=== PATIENT | male | born 1970 | race Two or more races ===

== ENCOUNTER 2024-09-03 09:31 | Inpatient (IN) | payer OTHER ==
[~2024-09-03] VITALS: Ht 182.9 cm; Wt 129.2 kg
[2024-09-03] MEDS: LIDOCAINE VISCOUS 2% 15ML UD MT ONE (10:07)
[2024-09-03] MEDS: GLUCAGON EMERG KIT 1mg/1ml IM ONE (10:07)
[2024-09-03 10:29] LABS: Basophils # (auto) 0.1 10 ^3/uL (0-0.2); Basophils % (auto) 0.8 % (0.0-2.0); Eosinophils # (auto) 0.3 10 ^3/uL (0-0.8); Eosinophils % (auto) 2.6 % (0.0-7.0); Hematocrit 51.4 % (41.0-53.0); Hemoglobin 17.4 g/dL (13.5-17.5); Lymphocytes # (auto) 2.6 10 ^3/uL (0.4-5.4); Mean Corpuscular Hgb Conc. 33.8 g/dL (32.0-36.0); Mean Corpuscular Volume 85.7 fL (80.0-100.0); Monocytes # (auto) 1.3 10 ^3/uL (0-1.3); Monocytes % (auto) 11.9 % (0.0-12.0); Neutrophils # (auto) 6.4 10 ^3/uL (1.6-8.6); Neutrophils % (auto) 60.7 % (37.0-80.0); Platelet Count (auto) 301 10^3/uL (140-450); Red Cell Distribution Width 14.7 % (11.8-14.3); White Blood Cell 10.6 10^3/uL (4.4-10.8)
[2024-09-03 10:36] LABS: Chloride 105 mmol/L (98-107); Potassium 4.1 mmol/L (3.5-5.1); Sodium 139 mmol/L (136-145)
[2024-09-03 10:37] LABS: Anion Gap 8 (5-15); Calcium 9.9 mg/dL (8.7-10.4); Carbon Dioxide 26 mmol/L (20-31)
[2024-09-03 10:41] LABS: INR 1.07 (0.9-1.15); Prothrombin Time 11.3 sec (9.3-11.8)
[2024-09-03 10:42] LABS: BUN/Creatinine Ratio 11.6 (10.0-20.0); Blood Urea Nitrogen 11 mg/dL (9-23); Glucose 111 mg/dL (74-106)
[2024-09-03] MEDS: LORazepam 2MG/ML-1ML VIAL IV ONE (11:02)
[2024-09-03] MEDS: SODIUM CHLORIDE 0.9% 500 ML IV ONE (11:02)
[2024-09-03] MEDS ORDERED: ACETAMINOPHEN 325 MG TAB PO PRN (16:00)
[2024-09-03] MEDS: SODIUM CHLORIDE 0.9% 1,000 ML IV SCH (16:03)
[2024-09-03] MEDS: ONDANSETRON HCL 4 MG/2 ML VIAL IV PRN (16:41)
[2024-09-03] MEDS: fentaNYL CITRATE 100 MCG/2 ML VL ONE (16:55)
[2024-09-03 17:30] VITALS: PULSE 94; RESP 18; O2SAT 96
[2024-09-03] MEDS ORDERED: NALOXONE HCL 0.4 MG/ML VIAL ONE (18:11)
[2024-09-03] MEDS ORDERED: FLUMAZENIL 0.1 MG/ML INJ 10ML MDV IV ONE (18:11)
[2024-09-03] MEDS ORDERED: diphenhdrAMINE HCL 50 MG/1 ML VL ONE (18:12)
[2024-09-03 18:15] VITALS: PULSE 104; RESP 24; O2SAT 97
[2024-09-03] MEDS ORDERED: LIDOCAINE VISCOUS 2% 15ML UD ONE (18:15)
[2024-09-03] MEDS: MIDAZOLAM HCL 5 MG/ML-1ML VIAL ONE (18:35)
[2024-09-03] MEDS: MIDAZOLAM HCL 2MG/2ML 2ml VIAL (1mg/ml) ONE (18:45)
[2024-09-03 20:00] VITALS: PULSE 89; RESP 16; O2SAT 96
[2024-09-03 23:14] VITALS: BP 125/82; PULSE 89; RESP 16; TEMP 98.2; O2SAT 96
[2024-09-04 05:00] VITALS: BP 113/80; PULSE 83; RESP 17; TEMP 97.6; O2SAT 98
[2024-09-04 06:05] LABS: Basophils # (auto) 0.1 10 ^3/uL (0-0.2); Basophils % (auto) 0.8 % (0.0-2.0); Eosinophils # (auto) 0.3 10 ^3/uL (0-0.8); Eosinophils % (auto) 2.7 % (0.0-7.0); Hematocrit 45.1 % (41.0-53.0); Hemoglobin 15.3 g/dL (13.5-17.5); Lymphocytes # (auto) 2.9 10 ^3/uL (0.4-5.4); Mean Corpuscular Hemoglobin 29.3 pg (28.0-32.0); Mean Corpuscular Volume 86.2 fL (80.0-100.0); Monocytes # (auto) 1.4 10 ^3/uL (0-1.3); Monocytes % (auto) 13.9 % (0.0-12.0); Neutrophils # (auto) 5.7 10 ^3/uL (1.6-8.6); Neutrophils % (auto) 54.6 % (37.0-80.0); Nucleated Red Blood Cells % 0.1 %; Platelet Count (auto) 234 10^3/uL (140-450); Red Blood Cells 5.24 10^6/uL (4.5-5.90); Red Cell Distribution Width 14.6 % (11.8-14.3); White Blood Cell 10.4 10^3/uL (4.4-10.8)
[2024-09-04 06:24] LABS: Alanine Aminotransferase 44 U/L (7-40); Albumin 3.9 g/dL (3.2-4.8); Alkaline Phosphatase 79 U/L (46-116); Anion Gap 8 (5-15); Aspartate Aminotransferase 33 U/L (13-40); BUN/Creatinine Ratio 13.5 (10.0-20.0); Blood Urea Nitrogen 12 mg/dL (9-23); Calcium 8.9 mg/dL (8.7-10.4); Carbon Dioxide 26 mmol/L (20-31); Chloride 107 mmol/L (98-107); Glucose 89 mg/dL (74-106); Potassium 3.7 mmol/L (3.5-5.1); Sodium 141 mmol/L (136-145)
[2024-09-04 06:25] LABS: Bilirubin, Total 1.1 mg/dL (0.2-1.0); Total Protein 6.9 g/dL (5.7-8.2)
[2024-09-04] MEDS: PANTOPRAZOLE 40 MG TAB PO SCH (08:56)
[2024-09-04 09:00] VITALS: BP 147/80; PULSE 82; RESP 20; TEMP 98; O2SAT 98
== END 2024-09-04 10:48 | disposition left against medical advice (07) | DRG 394 ==
LOC: ER 09:31 → OVERFLOW 15:46 → EAST 17:28
PROVIDERS: ADMIT Nurse Practitioner Family; ATTEND Nurse Practitioner Family
PROC: 0DC58ZZ Extirpation of Matter from Esophagus, Via Natural or Artificial Opening Endoscopic (ICD-10-PCS; principal; 2024-09-03 19:02)
DX: T18.128A Food in esophagus causing other injury, initial encounter (principal); K22.10 Ulcer of esophagus without bleeding; Z53.29 Procedure and treatment not carried out because of patient's decision for other reasons
CPT/HCPCS: 36415; 70360; 80048; 80053; 85025; 85610; G0378; J2250; J2405